=== PATIENT | female | born 1965 | race Caucasian/White ===

== ENCOUNTER 2019-08-06 12:37 | Emergency (ER) | payer OTHER ==
[~2019-08-06] VITALS: Ht 170.2 cm; Wt 109.3 kg
--- NOTE | 2019-08-06 12:41 | NUR ---
"BIB RA 102 FROM HOME, AGITATED AND SCREAMING AT HER DAUGHTERS, OFF OF HER BIPOLAR MEDS X 2 WEEKS" PT TO BED 12, PT ON MONITOR, VSS, NAD NOTED, PENDING MD CARCAMO
[2019-08-06] MEDS ORDERED: LAMO100T17 PO (12:45)
[2019-08-06] MEDS ORDERED: SIMV10TA98 PO (12:45)
[2019-08-06] MEDS ORDERED: LEVO75TA7 PO (12:45)
[2019-08-06] MEDS ORDERED: METF-440 PO (12:45)
[2019-08-06 14:07] LABS: BASOPHILS % (AUTO) 0.2 % (0.0-2.0); EOSINOPHILS % (AUTO) 0.4 % (0.0-6.0); HEMATOCRIT 38 % (33-45); HEMOGLOBIN 12.5 g/dL (11.5-14.8); LYMPHOCYTES # (AUTO) 1.4 /CMM (0.8-4.8); LYMPHOCYTES % (AUTO) 14.5 % (20.0-44.0); MEAN CORPUSCULAR HGB CONC 33 g/dl (31.0-36.0); MEAN CORPUSCULAR VOLUME 89 fL (82-100); MONOCYTES # (AUTO) 0.5 /CMM (0.1-1.30); MONOCYTES % (AUTO) 5.2 % (2.0-12.0); NEUTROPHILS # (AUTO) 7.5 /CMM (1.8-8.9); NEUTROPHILS % (AUTO) 79.7 % (43.0-81.0); PLATELET COUNT (AUTO) 262 /CMM (150-450); WHITE BLOOD COUNT (AUTO) 9.4 K/uL (4.3-11.0)
--- NOTE | 2019-08-06 14:14 | NUR ---
PT REFUSED TO PROVIDE URINE SAMPLE AT THIS TIME, NIKOLAI ANGEL
[2019-08-06 14:34] LABS: ALANINE AMINOTRANSFERASE 20 U/L (12-78); ALBUMIN 3.6 g/dL (3.4-5.0); ALCOHOL, BLOOD < 3 mg/dL (0-0); ALKALINE PHOSPHATASE 103 U/L (46-116); ASPARTATE AMINOTRANSFERASE 13 U/L (15-37); BILIRUBIN,TOTAL 0.3 mg/dL (0.2-1.0); CALCIUM, SERUM 9.4 mg/dL (8.5-10.1); CARBON DIOXIDE 25 mmol/L (21-32); CHLORIDE 107 mmol/L (98-107); CREATININE 0.8 mg/dL (0.6-1.3); GLUCOSE 109 mg/dL (74-106); POTASSIUM 4.2 mmol/L (3.5-5.1); SODIUM SERUM 139 mmol/L (136-145); TOTAL PROTEIN, SERUM 7.1 g/dL (6.4-8.2); UREA NITROGEN, BLOOD 16 mg/dL (7-18)
[2019-08-06 14:35] LABS: ACETAMINOPHEN < 2 ug/ml (10-30); SALICYLATE 1.4 mg/dL (2.8-20.0)
[2019-08-06 14:52] LABS: APPEARANCE,URINE Clear (CLEAR); BILIRUBIN,URINE Negative (NEGATIVE); BLOOD, URINE Trace-intact Ery/uL (NEGATIVE); COLOR,URINE Yellow (YELLOW); KETONES,URINE Negative (NEGATIVE); LEUKOCYTE ESTERASE ,URINE Negative (NEGATIVE); NITRITE, URINE Negative (NEGATIVE); PH,URINE 7.5 (5.0-8.0); PROTEIN,URINE Negative (NEGATIVE); UGLUCOSE Negative (NEGATIVE); UROBILINOGEN,URINE 0.2 EU/dL (0.2)
[2019-08-06 15:05] LABS: BACTERIA,URINE Rare /HPF (None Seen); SQUAMOUS EPITHELIAL CELL,UR Few /HPF (None Seen); WBC,URINE NONE SEEN /HPF (0-3)
--- NOTE | 2019-08-06 16:03 | NUR ---
CALLED ART [phone]
[2019-08-06 17:00] VITALS: BP 155/80
[2019-08-06] MEDS ORDERED: LORAZEPAM 1 MG TABLET PO ONE (17:00)
[2019-08-06] MEDS ORDERED: LORAZEPAM 1 MG TABLET ONE (17:19)
--- NOTE | 2019-08-06 17:32 | NUR ---
Patient discharged to home in stable condition. Written and verbal after care instructions given. Patient verbalizes understanding of instruction.
== END 2019-08-06 17:34 | disposition home or self-care (01) ==
LOC: ER 12:40
DX: F31.9 Bipolar disorder, unspecified (principal); E11.9 Type 2 diabetes mellitus without complications; R45.1 Restlessness and agitation; E78.00 Pure hypercholesterolemia, unspecified; Z79.899 Other long term (current) drug therapy
CPT/HCPCS: 36415; 80048; 80076; 80305; 80307; 80329; 81001; 85025; 99284; G0480; 81000-TC

== ENCOUNTER 2020-09-13 23:33 | Emergency (ER) | payer OTHER ==
[~2020-09-13] VITALS: Ht 167.6 cm; Wt 102.5 kg
[~2020-09-13 23:33] MED LIST: LAMO100T17 PO; LEVO75TA7 PO; METF-440 PO; SIMV10TA98 PO
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
[2020-09-14] MEDS ORDERED: OLANZAPINE 10 MG VIAL IM ONE ×4 (00:17→06:00)
[2020-09-14 01:00] LABS: BASOPHILS % (AUTO) 0.2 % (0.0-2.0); EOSINOPHILS % (AUTO) 0.1 % (0.0-6.0); HEMATOCRIT 39 % (33-45); HEMOGLOBIN 12.6 g/dL (11.5-14.8); LYMPHOCYTES # (AUTO) 1.2 /CMM (0.8-4.8); LYMPHOCYTES % (AUTO) 12.5 % (20.0-44.0); MEAN CORPUSCULAR HGB CONC 32 g/dl (31.0-36.0); MEAN CORPUSCULAR VOLUME 89 fL (82-100); MONOCYTES # (AUTO) 0.6 /CMM (0.1-1.30); MONOCYTES % (AUTO) 6.2 % (2.0-12.0); NEUTROPHILS # (AUTO) 7.5 /CMM (1.8-8.9); PLATELET COUNT (AUTO) 244 /CMM (150-450); RED BLOOD CELL COUNT(AUTO) 4.35 MIL/uL (4.0-5.2); WHITE BLOOD COUNT (AUTO) 9.2 K/uL (4.3-11.0)
[2020-09-14 01:22] LABS: CALCIUM, SERUM 9.5 mg/dL (8.5-10.1); CARBON DIOXIDE 25 mmol/L (21-32); CHLORIDE 104 mmol/L (98-107); CREATININE 0.8 mg/dL (0.6-1.3); GLUCOSE 164 mg/dL (74-106); POTASSIUM 3.7 mmol/L (3.5-5.1); SODIUM SERUM 140 mmol/L (136-145); UREA NITROGEN, BLOOD 20 mg/dL (7-18)
[2020-09-14 01:30] LABS: THYROID STIMULATING HORMONE 4.971 uIU/mL (0.358-3.74)
[2020-09-14 01:33] LABS: ALANINE AMINOTRANSFERASE 15 U/L (12-78); ALBUMIN 3.7 g/dL (3.4-5.0); ALCOHOL, BLOOD < 3 mg/dL (0-0); ALKALINE PHOSPHATASE 109 U/L (46-116); ASPARTATE AMINOTRANSFERASE 11 U/L (15-37); BILIRUBIN,DIRECT 0.1 mg/dL (0.0-0.2); BILIRUBIN,TOTAL 0.3 mg/dL (0.2-1.0); TOTAL PROTEIN, SERUM 7.3 g/dL (6.4-8.2)
[2020-09-14 01:36] LABS: ACETAMINOPHEN 0 ug/ml (10-30)
--- NOTE | 2020-09-14 02:04 | NUR ---
urine collected and sent to lab
[2020-09-14 02:27] LABS: BILIRUBIN,URINE NEGATIVE (NEGATIVE); COLOR,URINE YELLOW (YELLOW); LEUKOCYTE ESTERASE ,URINE TRACE (NEGATIVE); NITRITE, URINE NEGATIVE (NEGATIVE); PROTEIN,URINE NEGATIVE (NEGATIVE); UGLUCOSE NEGATIVE (NEGATIVE); UROBILINOGEN,URINE 0.2 EU/dL (0.2)
[2020-09-14 02:53] LABS: BACTERIA,URINE Few /HPF (None Seen); RBC,URINE 0-2 /HPF (0-2); SQUAMOUS EPITHELIAL CELL,UR Few /HPF (None Seen)
--- NOTE | 2020-09-14 05:40 | NUR ---
PT WITH EPISODE OF AGITATION, DR. PHELPS AWARE, NEW ORDER FOR ZYPREXA X1.
--- NOTE | 2020-09-14 07:20 | NUR ---
ASSUME PATIENT CARE. SLEEPING IN BED. EASILY AROUSABLE. RESTRAINT DISCONTINUED. SITTER AT BEDSIDE. PT W/ STABLE VITALS. WILL CONTINUE TO MONITOR.
--- NOTE | 2020-09-14 08:40 | NUR ---
GRIS spoke with link fabric machine operator Zackery. Per Zackery, patient at this time is asleep as patient was given Zyprexa at 5:40am this morning. Plan: SW to follow-up when patient is awake and alert to conduct social work case manager assessment.
--- NOTE | 2020-09-14 08:55 | NUR ---
PT IS AWAKE. RESTING IN BED. VERBALLY RESPONSIVE AND COOPERATIVE AT THIS TIME. VITALS STABLE AND UPDATED.
--- NOTE | 2020-09-14 10:30 | NUR ---
DAUGHTER VIRIDIANA CALLED AND LEFT CONTACT # [phone]
--- NOTE | 2020-09-14 10:38 | NUR ---
GREG LANDRY AT BEDSIDE TALKING TO PATIENT.
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
--- NOTE | 2020-09-14 10:56 | NUR ---
GRIS called Sharon Jose Grab Driver licensed bondsman. GRIS unavailable to speak with Sharon, GRIS left voicemail with call back number.
--- NOTE | 2020-09-14 11:16 | NUR ---
Patient's daughter Stephany provided patient's psychiatrist contact information to this SW. Dr. De La Rosa .
--- NOTE | 2020-09-14 12:07 | NUR ---
GRIS unable to reach [facility] Sales Representative Livestock nurse practitioner hospitalist. GRIS left voicemail with call back number.
--- NOTE | 2020-09-14 12:14 | NUR ---
SW called Cytology Technologist Svetlana Rolle . Svetlana will evaluate the patient. Approximate ETA 30-45 minutes.
--- NOTE | 2020-09-14 13:18 | NUR ---
HENRY TERRAZAS AT BEDSIDE FOR EVAL.
[2020-09-14] MEDS ORDERED: LORAZEPAM INJ 2 MG/ML VIAL ONE (13:21)
[2020-09-14] MEDS ORDERED: LORAZEPAM INJ 2 MG/ML VIAL IM ONE (13:30)
--- NOTE | 2020-09-14 13:30 | NUR ---
PT WAS AGITATED, YELLING WHILE BEING EVALUATED. PT MEDICATED ORDERED.
--- NOTE | 2020-09-14 14:40 | NUR ---
GRIS was notified by coal shooter Svetlana Rolle, WATCH DIAL PRINTER that the patient was placed on a 5150 hold. GRIS to assist in following up regarding placement for psychiatric hospitalization. Svetlana also informed this SW that Svetlana faxed clinicals to [facility] . Plan: SW to follow-up with [facility] regarding referral status.
--- NOTE | 2020-09-14 15:05 | NUR ---
SW called [facility] [phone] and spoke with Art. Art informed this SW that clinicals have been faxed to psychiatric facilities. Art informed this SW that he would follow up with this SW or ED staff regarding status. Plan: SW to follow-up with Art at [facility] [phone] before end of day for additional status update. SW remains available for all needs regarding this patient.
--- NOTE | 2020-09-14 16:13 | NUR ---
RECEIVED A CALL FROM PAULINA, SHE STATED PT IS ACCEPTED AT [facility], PENDING BED ASSIGNMENT. PHONE # [phone]
[2020-09-14 16:41] VITALS: BP 146/69
--- NOTE | 2020-09-14 16:44 | NUR ---
GRIS received a call from patient's daughter Stephany wanting an update regarding patient regarding 5150 status. SW called hvac r instructor and clinician was unavailable to speak with patient's daughter. GRIS informed Stephany that crisis Svetlana Rolle will return Stephany's call as hvac r instructor is currently unavailable. SW remains available for all needs regarding this patient.
--- NOTE | 2020-09-14 17:05 | NUR ---
CALL FROM MARNIE,LOCAL [employer]BIN[employer] TRUCK DRIVER, ACCEPTED BY DR CLINTON, [address], REPORT TO [phone] [phone], ADDRESS IS [address] [place] [address]
--- NOTE | 2020-09-14 17:08 | NUR ---
VIRIDIANA [facility] [phone].
--- NOTE | 2020-09-14 17:19 | NUR ---
CALLED [id number] FOR AMBULANCE TO [facility], RES#[id number], AWAITING ETA
--- NOTE | 2020-09-14 17:38 | NUR ---
CALL THE CAR CALLED [facility] AMIN 75 MINS.
--- NOTE | 2020-09-14 17:49 | NUR ---
REPORT GIVEN TO RODRIGUEZ. PT AWAITING TRANSFER TO FLOOR.
--- NOTE | 2020-09-14 19:50 | NUR ---
PT TRANSFERED. REPORT GIVEN TO TRANSFER EMT.
== END 2020-09-14 19:52 ==
LOC: ER 23:33
DX: F31.9 Bipolar disorder, unspecified (principal); E78.00 Pure hypercholesterolemia, unspecified; Z79.899 Other long term (current) drug therapy; E11.9 Type 2 diabetes mellitus without complications; Z79.84 Long term (current) use of oral hypoglycemic drugs; R94.31 Abnormal electrocardiogram [ECG] [EKG]; Z20.822 Contact with and (suspected) exposure to COVID-19
CPT/HCPCS: 36415; 70450; 71045; 80048; 80076; 80299; 80307; 80320; 81001; 84443; 84484; 84703; 85025; 87086; 87426; 93005; 96372 ×2; 99285; C9803; J2060; J3490 ×2; G0480

== ENCOUNTER 2021-05-27 17:55 | Emergency (ER) | payer OTHER ==
[~2021-05-27] VITALS: Ht 160 cm; Wt 79.4 kg
--- NOTE | 2021-05-27 18:20 | NUR ---
The patient bibs for "Something wrong with eyes- cant see too well". Upon assessment the patient stated that she has double vision. Denies pain. In room air and denies SOB. Respiration regular and unlabored. Will continue to monitor the patient.
--- NOTE | 2021-05-27 18:25 | NUR ---
DR TORRES AT THE [facility] WITH HORACIO WHITE
--- NOTE | 2021-05-27 18:36 | NUR ---
STARTED LEFT HAND G 18, BLOOD SPECIMEN COLLECTED AND SENT TO THE LAB. THE LINE IS SALINE LOCKED. THE PATIENT TOLERATED IV LINE INSERTION AND SPECIMEN COLLECTION WELL.
--- NOTE | 2021-05-27 18:37 | NUR ---
COVID SWAB DONE AND SENT TO THE LAB
--- NOTE | 2021-05-27 18:46 | NUR ---
ECG TECH AT THE BEDSIDE
[2021-05-27 18:55] LABS: BASOPHILS # (AUTO) 0.3 K/uL (0.0-0.2); BASOPHILS % (AUTO) 2.9 % (0.0-2.0); EOSINOPHILS % (AUTO) 0.7 % (0.0-6.0); HEMATOCRIT 39 % (33-45); HEMOGLOBIN 12.5 g/dL (11.5-14.8); LYMPHOCYTES # (AUTO) 1.7 K/uL (0.8-4.8); LYMPHOCYTES % (AUTO) 15.2 % (20.0-44.0); MEAN CORPUSCULAR HGB CONC 32 g/dl (31.0-36.0); MEAN CORPUSCULAR VOLUME 89 fL (82-100); MONOCYTES # (AUTO) 0.6 K/uL (0.1-1.30); MONOCYTES % (AUTO) 5.3 % (2.0-12.0); NEUTROPHILS # (AUTO) 8.3 K/uL (1.8-8.9); NEUTROPHILS % (AUTO) 75.9 % (43.0-81.0); PLATELET COUNT (AUTO) 509 K/uL (150-450); RED BLOOD CELL COUNT(AUTO) 4.36 MIL/uL (4.0-5.2)
[2021-05-27 19:03] LABS: CARBON DIOXIDE 27 mmol/L (21-32); CHLORIDE 107 mmol/L (98-107); CREATININE 0.9 mg/dL (0.6-1.3); GLUCOSE 101 mg/dL (74-106); POTASSIUM 4.1 mmol/L (3.5-5.1); SODIUM SERUM 137 mmol/L (136-145); UREA NITROGEN, BLOOD 17 mg/dL (7-18)
[2021-05-27 19:09] LABS: ALANINE AMINOTRANSFERASE 26 U/L (12-78); ALBUMIN 3.4 g/dL (3.4-5.0); ALKALINE PHOSPHATASE 106 U/L (46-116); ASPARTATE AMINOTRANSFERASE 15 U/L (15-37); BILIRUBIN,DIRECT 0.1 mg/dL (0.0-0.2); BILIRUBIN,TOTAL 0.3 mg/dL (0.2-1.0)
[2021-05-27] MEDS ORDERED: IOHEXOL-350 100 ML VIAL IV ONE ×2 (19:12→20:03)
[2021-05-27] MEDS ORDERED: IV NS 0.9% 250 ML IV ONE (19:13)
--- NOTE | 2021-05-27 19:27 | NUR ---
report given to nurse Pena
--- NOTE | 2021-05-27 19:36 | NUR ---
RECIEVED REPORT FOR ARCHANA. PATIENT RESTING COMFORTABLY IN BED VITAL SIGNS STABLE RESPIRATIONS EVEN AND UNLABORED.
--- NOTE | 2021-05-27 20:10 | NUR ---
PATIENT TAKEN TO CT
[2021-05-27 20:35] VITALS: BP 110/70
[2021-05-27] MEDS ORDERED: ASPIRIN 81 MG TAB.CHEW PO ONE (21:00)
--- NOTE | 2021-05-27 21:01 | NUR ---
Patient does not wish to proceed with medical care recommended by Dr. Manriquez. Patient given information related to possible complications, up to and including , which could occur as a result of leaving the hospital at this time. Patient verbalizes understanding of risks involved due to leaving against medical advice. Patient has signed AMA form.
== END 2021-05-27 21:02 | disposition left against medical advice (07) ==
LOC: ER 18:13
DX: H53.2 Diplopia (principal); R94.31 Abnormal electrocardiogram [ECG] [EKG]; Z53.29 Procedure and treatment not carried out because of patient's decision for other reasons; D47.3 Essential (hemorrhagic) thrombocythemia; F31.9 Bipolar disorder, unspecified; E11.9 Type 2 diabetes mellitus without complications; Z79.84 Long term (current) use of oral hypoglycemic drugs; E78.00 Pure hypercholesterolemia, unspecified; Z79.899 Other long term (current) drug therapy; Z20.822 Contact with and (suspected) exposure to COVID-19
CPT/HCPCS: 36415; 70496; 80048; 80076; 83735; 84484; 85025; 85730; 87426; 93005; 99285; C9803; J7050; Q9967

== ENCOUNTER 2024-05-09 00:30 | Emergency (ER) | payer OTHER ==
[~2024-05-09] VITALS: Ht 160 cm; Wt 81.6 kg
[2024-05-09] MEDS ORDERED: TDAP [DIPH/PERTUSSIS/TET] 0.5 ML VIAL IM ONE (02:21)
[2024-05-09] MEDS ORDERED: CEFAZOLIN 1 GM in IV D5W 50 ML IV ONE (02:30)
[2024-05-09 02:41] LABS: BASOPHILS % (AUTO) 0.2 % (0.0-2.0); EOSINOPHILS # (AUTO) 0.1 K/uL (0.0-0.7); EOSINOPHILS % (AUTO) 1.2 % (0.0-6.0); HEMATOCRIT 38 % (33-45); HEMOGLOBIN 12.2 g/dL (11.5-14.8); LYMPHOCYTES # (AUTO) 2.4 K/uL (0.8-4.8); LYMPHOCYTES % (AUTO) 29.5 % (20.0-44.0); MEAN CORPUSCULAR HEMOGLOBIN 28 PG (26.0-33.0); MEAN CORPUSCULAR HGB CONC 32 g/dl (31.0-36.0); MEAN CORPUSCULAR VOLUME 88 fL (82-100); MONOCYTES # (AUTO) 0.5 K/uL (0.1-1.30); MONOCYTES % (AUTO) 6.5 % (2.0-12.0); NEUTROPHILS # (AUTO) 5.2 K/uL (1.8-8.9); NEUTROPHILS % (AUTO) 62.6 % (43.0-81.0); PLATELET COUNT (AUTO) 308 K/uL (150-450); RED CELL DISTRIBUTION WIDTH 16.1 % (11.5-15.0); WHITE BLOOD COUNT (AUTO) 8.3 K/uL (4.3-11.0)
[2024-05-09] MEDS ORDERED: CEFTRIAXONE 1GM BAG (ER ONLY) 50 ML IV ONE (02:41)
[2024-05-09] MEDS ORDERED: SULFAMETH/TRIMETH 800/160 MG 1 UDTAB TABLET ONE (02:42)
[2024-05-09 02:51] LABS: CREATININE 1.2 mg/dL (0.6-1.3); POTASSIUM 4.6 mmol/L (3.5-5.1)
[2024-05-09 02:57] LABS: ALBUMIN 3.8 g/dL (3.4-5.0); BILIRUBIN,TOTAL 0.3 mg/dL (0.2-1.0)
[2024-05-09] MEDS: TDAP [DIPH/PERTUSSIS/TET] 0.5 ML VIAL IM ONE (02:59)
[2024-05-09] MEDS: CEFTRIAXONE 1 G in IV D5W 50 ML IV ONE (03:00)
[2024-05-09] MEDS: SULFAMETH/TRIMETH 800/160 MG 1 UDTAB TABLET PO ONE (03:00)
[2024-05-09] MEDS ORDERED: SULF1TAB48 PO (06:18)
[2024-05-09] MEDS ORDERED: CEPH500C2 PO (06:18)
--- NOTE | 2024-05-09 07:49 | NUR ---
Patient discharged to home in stable condition. Written and verbal after care instructions given. Patient verbalizes understanding of instruction.
[2024-05-09 07:52] VITALS: BP 124/89; TEMP 98.4; O2SAT 100
== END 2024-05-09 07:52 | disposition home or self-care (01) ==
LOC: ER 00:30
DX: S61.412A Laceration without foreign body of left hand, initial encounter (principal); M79.89 Other specified soft tissue disorders; F31.9 Bipolar disorder, unspecified; E78.00 Pure hypercholesterolemia, unspecified; E11.9 Type 2 diabetes mellitus without complications; W26.0XXA Contact with knife, initial encounter; Y93.89 Activity, other specified; Y92.090 Kitchen in other non-institutional residence as the place of occurrence of the external cause; Y99.8 Other external cause status
CPT/HCPCS: 99285; 73201; 96365; 85025; 36415; 80053; J0690; J0696 ×2; J7060 ×2; J7050; Q9967; 90715